=== PATIENT | male | born 1955 ===

== ENCOUNTER 2023-03-03 05:30 | Day surgery (SDC) | payer OTHER ==
[2023-02-25 12:50] LABS: INR 1.02; PARTIAL THROMBOPLASTIN TIME 27.7 SECONDS (22.0-34.0); PROTHROMBIN TIME 10.7 SECONDS (9.0-11.5)
[~2023-03-03 05:30] MED LIST: NORVASC5 MG PO
== END 2023-03-03 13:55 | disposition home or self-care (01) ==
LOC: CIR.AMB 05:30
PROVIDERS: ATTEND Surgery
DX: K40.90 Unilateral inguinal hernia, without obstruction or gangrene, not specified as recurrent (principal); I10 Essential (primary) hypertension; Z20.822 Contact with and (suspected) exposure to COVID-19
CPT/HCPCS: 49650; C1781